=== PATIENT | female | born 1950 | race Caucasian/White ===

== ENCOUNTER 2023-01-28 08:53 | Emergency (ER) | payer MEDICARE, SELFPAY ==
[2023-01-28 09:05] VITALS: BP 147/79; PULSE 70; RESP 20; TEMP 36.6; O2SAT 97; BMI 30.2
--- NOTE | 2023-01-28 09:22 | EXP.UTC ---
Discharge Plan Disposition Patient Disposition: Home, Self-Care Condition: Good Prescriptions Prescriptions: New azithromycin [Zithromax] 250 mg tablet 250 mg PO UD DOSE PK Qty: 6 0RF Rx Instructions: Take two (2) tablets today, then one (1) tablet days #2 thru #5 benzonatate [benzonatate] 100 mg capsule 100 mg PO TIDP PRN (Reason: Cough) Qty: 30 0RF methylprednisolone 4 mg Tablets,Dose Pack 4 mg PO DIRECTED Qty: 21 0RF Referrals Follow up/Referrals: Provider,Referral, MD [Primary Care Provider] - See instructions Activity Restrictions/Add. Instructions Additional Instructions/Restrictions: Drink plenty of fluids. Take tylenol or ibuprofen for pain or fever. Take the medications as directed. Follow up with your regular doctor. GO TO THE ER FOR ANY WORSENING SYMPTOMS Clinical Impressions Clinical Impression: Sinusitis Instructions Patient Instructions: Sinusitis, DI for Sinusitis Discharge ED Provider: Sergio House [facility] General Stated complaint: congestion congestion Mode of Arrival: Ambulatory Source of Information: Patient Limitations: No Limitations Time Seen by Provider: 01/28/23 09:22 Description of Symptoms (Recalled from Triage Doc. by RN): PATIENT C/O COUGH, CONGESTION, AND RIGHT EAR FEELING CLOGGED THAT STARTED LAST WEEK HEENT Symptoms (Recalled from RN notes): Yes Resp Symptoms (Recalled from RN notes): Yes Skin Symptoms (Recalled from RN notes): No MS Symptoms (Recalled from RN notes): No Functional Status (Recalled from RN notes): WNL Related Data Previous Rx's Medication Instructions Recorded azithromycin 250 mg tablet 250 mg PO UD DOSE PK #6 tabs 01/28/23 (Zithromax) benzonatate 100 mg capsule 100 mg PO TIDP PRN Cough #30 caps 01/28/23 methylprednisolone 4 mg tablets in 4 mg PO DIRECTED #21 tabs 01/28/23 a dose pack Allergies Allergy/AdvReac Type Severity Reaction Status Date / Time Penicillins Allergy Verified 01/28/23 09:14 Worker's Comp Is this a Worker's Comp case?: No [facility] Disclaimer: The information contained in this section may have been updated after the patient was seen, as this information can be updated by other users. Medical History (Updated 01/28/23 @ 09:35 by Sergio Harsh, [employer]CIAL [employer]VE[employer]MENT MANAGER) Asthma Hyperlipidemia Hypertension Thyroid disease Surgical History (Updated 01/28/23 @ 09:15 by Cassidy Nj RN) History of hysterectomy Social History Smoking Status: Never smoker alcohol intake: never current occupational status: retired Travel in the last 8 weeks: None ROS Obtained: Yes All systems reviewed & no additional complaints except as documented Constitutional Constitutional: Reports poor appetite Eyes Eyes: Reports system reviewed and no additional complaints, except as documented ENT Ears, Nose, Mouth, and Throat: Reports as per HPI Cardiovascular Cardiovascular: Reports system reviewed and no additional complaints, except as documented and Denies chest pain Respiratory Respiratory: Denies shortness of breath, Reports chest congestion, Reports cough, Denies stridor and Denies wheezing Gastrointestinal Gastrointestingal: Reports system reviewed and no additional complaints, except as documented; Denies abdominal pain, diarrhea or vomiting Musculoskeletal Musculoskeletal: Reports system reviewed and no additional complaints, except as documented and Denies arthralgias Integumentary/Breasts Skin/Breast: Reports system reviewed and no additional complaints, except as documented and Denies rash Neurologic Neurologic: Denies paresthesias Allergic/Immunologic Allergic/Immunologic: Denies wheezing Physical Exam General General appearance: alert and in no apparent distress Eye Eye exam: Present normal appearance, PERRL and EOMI ENT ENT exam: Present mucous membranes moist and normal external ear exam Expanded ENT Exam External ear exam: Present normal external inspection TM/Canal exam
[2023-01-28 09:35] VITALS: BP 147/79; PULSE 70; RESP 20; TEMP 36.6; O2SAT 97
== END 2023-01-28 09:37 | disposition home or self-care (01) ==
PROVIDERS: Emergency Provider Nurse Practitioner Family
DX: J01.90 Acute sinusitis, unspecified (principal); R09.81 Nasal congestion; R05.9 Cough, unspecified; H92.01 Otalgia, right ear; J45.909 Unspecified asthma, uncomplicated; E78.5 Hyperlipidemia, unspecified; E03.9 Hypothyroidism, unspecified; I10 Essential (primary) hypertension
CPT/HCPCS: 99204; 99212; G0463

== ENCOUNTER 2023-02-24 08:06 | Emergency (ER) | payer MEDICARE, OTHER, SELFPAY ==
[2023-02-24 08:15] VITALS: BP 143/70; PULSE 68; RESP 20; TEMP 36.6; O2SAT 98; BMI 32.1
--- NOTE | 2023-02-24 08:29 | EXP.UTC ---
Discharge Plan Disposition Patient Disposition: Home, Self-Care Condition: Good Prescriptions Prescriptions: New methylprednisolone 4 mg Tablets,Dose Pack 4 mg PO DIRECTED Qty: 21 0RF cefdinir 300 mg capsule 300 mg PO BID Qty: 20 0RF guaifenesin [Mucinex] 600 mg tablet extended release 12hr 600 - 1,200 mg PO BIDP PRN (Reason: Congestion) Qty: 30 0RF Referrals Follow up/Referrals: Tasia Chapman [Primary Care Provider] - See instructions Activity Restrictions/Add. Instructions Additional Instructions/Restrictions: Drink plenty of fluids. Take tylenol or ibuprofen for pain or fever. Take the medications as directed. Follow up with your regular doctor. GO TO THE ER FOR ANY WORSENING SYMPTOMS Don't start the oral steroids until tomorrow, since you had the shot here today. Clinical Impressions Clinical Impression: Sinusitis, Otitis media Instructions Patient Instructions: Middle Ear Infection, DI for Sinusitis Discharge ED Provider: Sergio House [facility] [place] General Stated complaint: cough,ear pain Time Seen by Provider: 02/24/23 08:27 History of Present Illness Provider Complaint: She states that for the past 4 days she has had worsening left ear pain and sinus congestion. Related Data Previous Rx's Medication Instructions Recorded cefdinir 300 mg capsule 300 mg PO BID #20 caps 02/24/23 guaifenesin 600 mg tablet, 600 - 1,200 mg PO BIDP PRN 02/24/23 extended release 12 hr (Mucinex) Congestion #30 tabs methylprednisolone 4 mg tablets in 4 mg PO DIRECTED #21 tabs 02/24/23 a dose pack Allergies Allergy/AdvReac Type Severity Reaction Status Date / Time Penicillins Allergy Verified 01/28/23 09:14 [facility] Disclaimer: The information contained in this section may have been updated after the patient was seen, as this information can be updated by other users. Medical History (Updated 02/24/23 @ 09:13 by Sergio House APRN) Asthma Hyperlipidemia Hypertension Thyroid disease Surgical History (Updated 01/28/23 @ 09:15 by Cassidy Nj RN) History of hysterectomy Social History (Updated 01/31/23 @ 15:41 by Sergio House APRN) Smoking Status: Never smoker alcohol intake: never current occupational status: retired Travel in the last 8 weeks: None ROS Obtained: Yes All systems reviewed & no additional complaints except as documented Constitutional Constitutional: Denies chills, Reports fever(s) and Reports poor appetite Eyes Eyes: Denies eye discharge ENT Ears, Nose, Mouth, and Throat: Denies ear discharge, Reports otalgia, Denies hearing loss, Denies sinus pain and Reports sore throat Cardiovascular Cardiovascular: Denies chest pain and Denies dyspnea Respiratory Respiratory: Denies chest congestion, Reports cough and Denies dyspnea Gastrointestinal Gastrointestingal: Denies abdominal pain, diarrhea, nausea or vomiting Musculoskeletal Musculoskeletal: Denies arthralgias Integumentary/Breasts Skin/Breast: Denies rash Physical Exam General General appearance: alert and in no apparent distress Head Head exam: atraumatic, normocephalic and normal inspection Eye Eye exam: Present normal appearance; Absent PERRL or EOMI ENT ENT exam: Present mucous membranes moist and normal external ear exam Expanded ENT Exam TM/Canal exam: Bilateral TM: erythema, bulging and effusion Nose exam: Absent sinus tenderness Nasal speculum exam: Bilateral: normal Mouth exam: Present normal external inspection and other; Absent drooling Teeth exam: Present normal inspection Throat exam: Present tonsillar erythema and tonsillomegaly Neck Neck exam: Present normal inspection, full ROM and trachea midline; Absent tenderness, meningismus or lymphadenopathy Chest Chest inspection: Present normal inspection and symmetric chest wall rise; Absent tenderness Respiratory Respiratory exam: Present normal lung sounds bilaterally; Absent respiratory distress, wheezes o
[2023-02-24 08:42] VITALS: BP 143/70; PULSE 68; RESP 20; TEMP 36.6; O2SAT 98
== END 2023-02-24 09:20 | disposition home or self-care (01) ==
PROVIDERS: Emergency Provider Nurse Practitioner Family; PCP Internal Medicine
DX: H66.93 Otitis media, unspecified, bilateral (principal); J01.90 Acute sinusitis, unspecified; R50.9 Fever, unspecified; R05.9 Cough, unspecified; R07.0 Pain in throat; I10 Essential (primary) hypertension; E78.5 Hyperlipidemia, unspecified; E03.9 Hypothyroidism, unspecified; J45.909 Unspecified asthma, uncomplicated; R09.81 Nasal congestion
CPT/HCPCS: 96372; 99212; 99214; G0463